=== PATIENT | male | born 1980 | race Caucasian/White ===

== ENCOUNTER 2017-12-03 16:34 | Emergency (ER) | payer MEDICAID, OTHER ==
[2017-12-03] MEDS: LIDOCAINE/MYLANTA 40 ML BTL PO (18:16)
[2017-12-03] MEDS: KETOROLAC 60 MG INJ IM (21:03)
[2017-12-03] MEDS: ASPIRIN 81 MG TAB PO (21:25)
[2017-12-03 21:41] LABS: TROPONIN-I < 0.010 ng/ml (0.000-0.120)
== END 2017-12-03 22:10 | disposition home or self-care (01) ==
LOC: E/R 16:34
DX: R07.9 Chest pain, unspecified (principal); R40.2252 Coma scale, best verbal response, oriented, at arrival to emergency department; R40.2142 Coma scale, eyes open, spontaneous, at arrival to emergency department; R40.2362 Coma scale, best motor response, obeys commands, at arrival to emergency department
CPT/HCPCS: 71045; 84484; 93005; 96372; 99285-25